=== PATIENT | female | born 1935 | race Caucasian/White ===

== ENCOUNTER → 2017-08-08 | Outpatient (CLI) | payer MEDICARE, OTHER ==
[~2017-08-08] MED LIST: ACETAMINOPHEN650 M5 PO; ADVAIR 250-501 EACH IH; ADVAIR 250-501 EACH INH; ALBUTEROL INHAL17 GM IH; ALBUTEROL2.5 MG/3 M INH; ASPIRIN81 M2 PO; BINOSTO70 MG PO; CHLORHEXADINE120 M1 TOP; CLONAZEPAM 0.50.5 M1 PO; CLONAZEPAM PO; COLACE 100 MG100 MG PO; COZAAR 50 MG TA50 MG PO; CRESTOR20 MG PO; DARVOCET-N 1001 EACH PO; DULCOLAX10 MG RC; FERREX 150 FORT1 CAP PO; FLEET ENEMA118 ML RECTAL; HYDRALAZINE 2525 MG PO; LEVAQUIN 500 M500 M5 PO; LEVOTHROID 00.075 M1 PO; LOTREL 5-10 MG1 EACH; LOTREL 5-40 MG1 EACH PO; MAGNESIUM GLUC250 MG PO; METOPROLOL SUCC50 MG PO; MILK OF MA400 MG/5 M PO; MOBIC7.5 MG PO; MULTI VITAMIN1 EACH PO; MUPIROCIN22 GM NASAL; NEURONTIN 300300 M1 PO; NEXIUM 40 MG CA40 M1 PO; NEXIUM40 MG PO; NITROGLYCERIN0.4 MG SUBLING; NORCO 5-325 TA1 EACH PO; NORVASC5 MG PO; OMEPRAZOLE40 MG PO; OXTELLAR XR300 MG PO; PACERONE 200 M200 M1 PO; PERCOCET 5-3251 EACH PO; POLYETHYLENE G255 GM PO; PREDNISONE50 MG PO; PROAIR HFA8.5 GM INH; SYNTHROID75 MCG PO; ULTRAM 50MG TAB50 MG PO; UNICOMPLEX M TA1 TA1 PO; VENTOLIN HFA 1818 GM INH; VITAMIN D400 UNI1 PO; ZOFRAN ODT4 MG SUBLING
== END ==
LOC: M.RAD 09:10
DX: Z12.31 Encounter for screening mammogram for malignant neoplasm of breast (principal)

== ENCOUNTER → 2018-03-29 | Outpatient (CLI) | payer MEDICARE, OTHER | LOC: M.ULTRA 08:56 | DX: R07.89 Other chest pain (principal); Z90.12 Acquired absence of left breast and nipple; R59.0 Localized enlarged lymph nodes; I10 Essential (primary) hypertension; E78.00 Pure hypercholesterolemia, unspecified; E03.9 Hypothyroidism, unspecified; J44.9 Chronic obstructive pulmonary disease, unspecified; I25.10 Atherosclerotic heart disease of native coronary artery without angina pectoris ==

== ENCOUNTER → 2018-08-16 | Outpatient (CLI) | payer MEDICARE, OTHER | LOC: M.RAD 10:17 | DX: Z12.31 Encounter for screening mammogram for malignant neoplasm of breast (principal) ==

== ENCOUNTER → 2019-02-28 | Outpatient (CLI) | payer MEDICARE, OTHER | LOC: M.RAD 02-26 16:28 | DX: Z13.820 Encounter for screening for osteoporosis (principal); M81.0 Age-related osteoporosis without current pathological fracture; M85.851 Other specified disorders of bone density and structure, right thigh; M16.0 Bilateral primary osteoarthritis of hip; Z78.0 Asymptomatic menopausal state ==

== ENCOUNTER → 2019-03-14 | Outpatient (CLI) | payer MEDICARE, OTHER | LOC: M.RAD 10:37 | DX: M16.0 Bilateral primary osteoarthritis of hip (principal) ==

== ENCOUNTER → 2019-08-05 | Outpatient (CLI) | payer MEDICARE, OTHER | LOC: M.RAD 08:30 | DX: Z12.31 Encounter for screening mammogram for malignant neoplasm of breast (principal) ==

== ENCOUNTER → 2019-09-03 | Outpatient (CLI) | payer MEDICARE, OTHER ==
--- NOTE | 2019-09-03 14:16 | 2DMMODE ---
[place] [address] 2 D/M-MODE ECHOCARDIOGRAM Name: NICOLEJADA Room: [facility]#: [id number] Admission: 09/03/19 Attend Phys: Sol Weems, Discharge: Date of : 33 Date of Service: 09/03/19 1415 Report #: [id number] THIS REPORT FOR: cc: Joy Foreman MD, Katrina MD Liston, Michael J. MD [facility] ~ APPROVED REPORT Study performed: 09/03/2019 10:36:13 EXAM: Comprehensive 2D, Doppler, and color-flow Echocardiogram Patient Location: Out-Patient BSA: 1.56 HR: 66 bpm BP: 147/74 mmHg Other Information Study Quality: Good Indications CAD Chest Pain 2D Dimensions IVSd: 9.02 (7-11mm) LVOT Diam: 18.33 (18-24mm) LVDd: 41.98 mm PWd: 8.96 (7-11mm) Ascending Ao: 27.28 (22-36mm) LVDs: 20.97 (25-40mm) Aortic Root: 22.67 mm Volumes Left Atrial Volume (Systole) LA ESV Index: 22.10 mL/m2 Aortic Valve AoV Peak Eric.: 1.51 m/s AO Peak Gr.: 9.11 mmHg LVOT Max P.62 mmHg AO Mean Gr.: 4.75 mmHg LVOT Mean P.75 mmHg LVOT Max V: 1.19 m/s AO V2 VTI: 32.88 cm LVOT Mean V: 0.76 m/s NORMA (VTI): 2.38 cm2 LVOT V1 VTI: 29.69 [place] [address] 2 D/M-MODE ECHOCARDIOGRAM Name: JADA RIVERA SATYA [facility] [id number] Admission: 09/03/19 Attend Phys: Sol Weems, Discharge: Date of : 33 Date of Service: 09/03/19 1415 Report #: [id number] E/A Ratio: 0.92 MV Decel. Time: 190.62 ms MV E Max Eric.: 0.75 m/s MV PHT: 55.28 ms MVA (PHT): 3.98 cm2 TDI E/Lateral E': 5.36 E/Medial E': 9.38 Medial E' Eric.: 0.08 m/s Lateral E' Eric.: 0.14 m/s Pulmonary Valve PV Peak Eric.: 1.19 m/s PV Peak Gr.: 5.62 mmHg Tricuspid Valve RAP Estimate: 5.00 mmHg TR Peak Gr.: 22.57 mmHg RVSP: 27.57 mmHg PA Pressure: 27.57 mmHg Left Ventricle The left ventricle is normal size. There is normal LV segmental wall motion. There is normal left ventricular wall thickness. Left ventricular systolic function is normal. LVEF is 55-60%. Grade I - abnormal relaxation pattern. Right Ventricle The right ventricle is normal size. The right ventricular systolic function is normal. Atria The left atrium size is normal. The right atrium size is normal. Aortic Valve The aortic valve is normal in structure. No aortic regurgitation is present. There is no aortic valvular stenosis. Mitral Valve The mitral valve is normal in structure. Mild mitral regurgitation. No evidence of mitral valve stenosis. Tricuspid Valve The tricuspid valve is normal in structure. Mild tricuspid regurgitation. No pulmonary hypertension[place] [address] 2 D/M-MODE ECHOCARDIOGRAM Name: JADA RIVERA SATYA Room: [facility]#: [id number] Admission: 09/03/19 Attend Phys: Sol Weems, Discharge: Date of : 33 Date of Service: 09/03/19 1415 Report #: [id number] The pulmonary valve is normal in structure. There is no pulmonic valvular regurgitation. Great Vessels The aortic root is normal in size. IVC is normal in size and collapses >50% with inspiration. Pericardium There is no pericardial effusion. <Conclusion> The left ventricle is normal size. There is normal left ventricular wall thickness. Left ventricular systolic function is normal. LVEF is 55-60%. Grade I - abnormal relaxation pattern. Mild mitral regurgitation. Mild tricuspid regurgitation. No pulmonary hypertension. IVC is normal in size and collapses >50% with inspiration. <ELECTRONICALLY SIGNED> By: Tha Eid MD, FACC 09/03/19 1415 1415 1415 Tha Eid MD, FACC /INF
--- NOTE | 2019-09-03 16:44 | CARDNUC ---
[place] [address] CARDIAC NUCLEAR IMAGING REPORT Name: JADA RIVERA Room: [facility]#: [id number] Admission: 09/03/19 Attend Phys: Sol Weems, Discharge: Date of : 33 Date of Service: 09/03/19 1643 Report #: [id number] THIS REPORT FOR: cc: Joy Fore[place] MD, Katrina MD Liston, Michael J. MD [facility] ~ ADDENDUM APPROVED REPORT Study performed: 09/03/2019 09:21:00 Exam: Nuclear Stress Test Indication: Dyspnea, Chest pain. Patient Location: Out-Patient Stress Tech: Jacey Hilario Stress Nurse: Dominique Castrejon R.N. Ht: 4 ft 10 in Wt: 139 lbs BSA: 1.56 m2 BMI: 29.04 Medical History Medical History: Angina, Atrial Fibrillation, CAD s/p CABG, Carotid artery disease, COPD, Fatigue, HTN, Hyperlipidemia, SOB, Weakness, Edema, Dizziness, Past smoker. Medications: ASA 81 Mg, Atorvastatin, Hydralazine, Metoprolol, Imdur, Benicar. Allergies: ASA, Iodine. Cardiac Risk Factors: Age, HTN, Hyperlipidemia, SOB, Past Smoker, Carotid Artery Disease. Previous Cardiac Procedures: CABG Pretest Chest Pain Characteristics: No chest pain Exercise History: Sedentary Physical Disabilities: Knee and Hip pain/replacement, Murmur. Meds Held (24 hrs): Imdur, Metoprolol. Stress Test Details Stress Test: Pharmacologic stress testing performed using 0.4 mg of regadenoson per 5 mL given IV over 10 seconds. Reason for pharmacologic stress test: Knee and Hip pain / replacement, Murmur.. HR Resting HR: 66 bpm Max Heart Rate (APMHR): 135 bpm Max HR Achieved: 91 bpm Target HR (85% APMHR): 114 bpm % of APMHR: 67 Recovery HR: [place] [address] CARDIAC NUCLEAR IMAGING REPORT Name: JADA RIVERA SATYA Room: [facility]#: [id number] Admission: 09/03/19 Attend Phys: Sol Weems, Discharge: Date of : 33 Date of Service: 09/03/19 1643 Report #: [id number] Resting BP: 228/92 mmHg Max BP: 175/74 mmHg ECG Resting ECG: Sinus Rhythm Stress ECG: Sinus Rhythm ST Change: None Arrhythmia: None Recovery ECG: Sinus Rhythm Recovery ST Change: None Recovery Arrhythmia: None Clinical Reason for Termination: Completed protocol Stress Symptoms: Leg Fatigue/Ache, Dyspnea, Headache, Fatigue. Exercise duration: 00 min 00 sec Exercise capacity: 1.00 METs The patient tolerated Lexiscan infusion without significant cardiac symptoms. Nurse Comments An 84 year old female presented for a sitting Lexiscan r/t IQBAL and Chest Pain. Test well tolerated. Recovery unremarkable with PO caffeine, effective. Patient was escorted by staff to Nuclear Medicine for imaging. Patient was stable and stated she felt good at that time. Stress ECG Conclusion The baseline 12-lead EKG shows sinus rhythm without significant ST segment abnormality. EKGs during and post Lexiscan infusion show sinus rhythm with no significant ST segment changes when compared to baseline. There were no stress-induced arrhythmias. NM EXAM: Myocardial Perfusion REST/STRESS Imaging Protocol: Rest Tc-99m/Stress Tc-99m 1 day Resting Data Rest SPECT myocardial perfusion imaging was performed in supine position 30 minutes following the intravenous injection of 11.0 mCi of Tc-99m Sestamibi. Time of rest injection: 07:55 The images were gated to evaluate regional wall motion and calculate left [place] [address] CARDIAC NUCLEAR IMAGING REPORT Name: JADA RIVERA SATYA [facility] [id number] Admission: 09/03/19 Attend Phys: Sol Weesm, Discharge: Date of : 33 Date of Service: 09/03/19 1643 Report #: [id number] Administration Route: IV Administration Site: Right AC Pharmacologic Stress Pharmacologic stress test was performed by injecting Regadenoson 0.4 mg IV push followed by the intravenous injection of 28.5 mCi of Tc-99m Sestamibi. Time of stress injection: 09:30 Administration Route: IV Administration Site: Right AC Gated Stress SPECT was performed 40 minutes after stress injection. The images were gated to evaluate regional wall motion and calculate left ventricular ejection fraction. Prone imaging was performed. Study Quality Study: Good Artifact: Mild Diaphragmatic artifact Study Data At rest, the left ventricular ejection fraction was 70%.. Post stress, the left ventricular ejection was 66%.. TID = 1.01. Perfusion Review of the perfusion images at rest and post stress show very mild photopenia in the inferior wall that appears more pronounced on resting and stress images. Wall motion in this region is normal on gated studies suggesting diaphragmatic attenuation artifact. No other significant fixed or reversible defects were identified. Wall Motion Global LV systolic function is preserved. There is a septal wall motion abnormality noted consistent with prior bypass procedure. Nuclear Conclusion ECG Findings: negative for ischemia Clinical Findings: negative for ischemia Nuclear Findings: negative for ischemia Exercise Capacity: not assessed Left Ventricular Function: preserved Risk Study: low Perfusion images show no defect to suggest ischemia. Global LV systolic function is preserved. This [place] [address] CARDIAC NUCLEAR IMAGING REPORT Name: JADA RIVERA SATYA [facility] [id number] Admission: 09/03/19 Attend Phys: Sol Weems, Discharge: Date of : 33 Date of Service: 09/03/19 1643 Report #: [id number] <Conclusion> The baseline 12-lead EKG shows sinus rhythm without significant ST segment abnormality. EKGs during and post Lexiscan infusion show sinus rhythm with no significant ST segment changes when compared to baseline. There were no stress-induced arrhythmias. <ELECTRONICALLY SIGNED> By: Tha Eid MD, FACC 09/03/19 1643 42 42 Tha Eid MD, FACC /INF
== END ==
LOC: M.CRD 07-30 12:34 → M.NUC 08-28 08:00 → M.CRD 08-28 11:00 → M.NUC 07:26
DX: I08.1 Rheumatic disorders of both mitral and tricuspid valves (principal); I48.91 Unspecified atrial fibrillation; I25.10 Atherosclerotic heart disease of native coronary artery without angina pectoris; J44.9 Chronic obstructive pulmonary disease, unspecified; E78.5 Hyperlipidemia, unspecified

== ENCOUNTER → 2019-12-27 | Outpatient (CLI) | payer MEDICARE, OTHER | LOC: M.RAD 09:24 | PROVIDERS: ATTEND Family Medicine | DX: I10 Essential (primary) hypertension (principal) ==

== ENCOUNTER → 2020-08-07 | Outpatient (CLI) | payer MEDICARE, OTHER | LOC: M.RAD 10:57 | PROVIDERS: ATTEND Family Medicine | DX: Z12.31 Encounter for screening mammogram for malignant neoplasm of breast (principal) ==

== ENCOUNTER → 2021-03-25 | Outpatient (CLI) | payer MEDICARE, OTHER ==
[2021-03-25 10:07] LABS: CALCIUM 9.8 mg/dL (8.5-10.1); CREATININE 1.3 mg/dL (0.6-1.3); POTASSIUM 5.1 mmol/L (3.5-5.1)
== END ==
LOC: M.LAB 09:36
PROVIDERS: ATTEND Registered Nurse
DX: I10 Essential (primary) hypertension (principal)

== ENCOUNTER → 2021-08-03 | Outpatient (CLI) | payer MEDICARE, OTHER | LOC: M.RAD 08:33 | PROVIDERS: ATTEND Family Medicine | DX: Z12.31 Encounter for screening mammogram for malignant neoplasm of breast (principal) ==

== ENCOUNTER 2021-08-06 10:42 | Emergency (ER) | payer MEDICARE, OTHER ==
[~2021-08-06] VITALS: Ht 147.3 cm; Wt 61.7 kg
[2021-08-06 11:58] LABS: ABSOLUTE EOSINOPHILS 0.1 thou/uL (0.0-0.7); ABSOLUTE LYMPHOCYTES 1.6 thou/uL (0.8-5.3); ABSOLUTE MONOCYTES 0.4 thou/uL (0.0-1.2); ABSOLUTE NEUTROPHILS 6.9 thou/uL (1.6-8.1); BASOPHILS 0.5 %; HEMATOCRIT 45.9 % (37.0-47.0); HEMOGLOBIN 14.5 gm/dL (12.0-15.0); LYMPHOCYTES 17.6 %; MCH 29.6 pg (26.0-34.0); MCHC 31.6 g/dL (28.0-37.0); MCV 93.7 fL (80.0-100.0); MONOCYTES 4.9 %; MPV 7.7 fl. (7.2-11.1); NUCLEATED RBCS 0 /100WBC; PLATELET COUNT* 216 thou/uL (150-400); RDW-CV 15.6 % (10.5-14.5)
[2021-08-06 12:12] LABS: CREATININE 0.9 mg/dL (0.6-1.3); POTASSIUM 3.8 mmol/L (3.5-5.1)
[2021-08-06 12:17] LABS: ALBUMIN 3.1 g/dL (3.4-5.0); TOTAL BILIRUBIN 0.5 mg/dL (<0.1-1.0); TOTAL PROTEIN 6.5 g/dL (6.4-8.2)
--- NOTE | 2021-08-06 12:33 | EKG ---
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 : 1935 Requested By: Delvis Lares Order Number: [id number] MD: Ralph Duong Measurements Intervals [place] Rate: 65 P: -16 SC: 176 QRS: -37 QRSD: 110 T: 25 QT: 431 QTc: 449 Interpretive Statements Sinus rhythm left axis Probable left atrial enlargement incomplete RBBB Left ventricular hypertrophy Compared to ECG 09/04/2016 16:54:00 no change Electronically Signed On 08-06-2021 12:33:36 MOLECULAR BIOLOGY PROFESSOR by Ralph Duong [email or web address] <ELECTRONICALLY SIGNED> By: Ralph Duong MD, FAC 08/06/21 1233 1149 1149 Ralph Duong MD, [facility] /EPI
[2021-08-06 12:38] LABS: URINE BILIRUBIN NEGATIVE (Negative); URINE BLOOD 1+ (Negative); URINE CLARITY CLEAR; URINE COLOR YELLOW; URINE GLUCOSE-RANDOM NEGATIVE (Negative); URINE KETONES NEGATIVE (Negative); URINE LEUKOCYTES-REFLEX NEGATIVE (Negative); URINE NITRITE-REFLEX NEGATIVE (Negative); URINE PROTEIN NEGATIVE (Negative); URINE UROBILINOGEN 0.2 E.U./dl (0.2-1.0)
[2021-08-06 12:42] LABS: CALCIUM 9.3 mg/dL (8.5-10.1)
[2021-08-06 12:50] LABS: BACTERIA-REFLEX 1-9 Few /HPF (None Seen); CASTS None Seen /LPF (None Seen); CRYSTALS None Seen /LPF (None Seen); SQUAMOUS NONE SEEN /LPF (0-3); URINE RBC None Seen /HPF (0-2); URINE WBC-REFLEX None Seen /HPF (0-5)
[2021-08-06 15:45] VITALS: BP 157/58
== END 2021-08-06 15:45 | disposition home or self-care (01) ==
LOC: M.ERS 10:42
PROVIDERS: Physician Assistant
DX: I10 Essential (primary) hypertension (principal); R51.9 Headache, unspecified; J44.9 Chronic obstructive pulmonary disease, unspecified; E03.9 Hypothyroidism, unspecified; E78.5 Hyperlipidemia, unspecified; I25.10 Atherosclerotic heart disease of native coronary artery without angina pectoris; Z98.61 Coronary angioplasty status; Z86.73 Personal history of transient ischemic attack (TIA), and cerebral infarction without residual deficits; Z96.652 Presence of left artificial knee joint; Z90.89 Acquired absence of other organs; Z79.899 Other long term (current) drug therapy